=== PATIENT | female | born 1980 | race Caucasian/White ===

== ENCOUNTER 2017-10-05 12:36 | Emergency (ER) | payer SELFPAY ==
[2017-10-05 12:45] VITALS: BP 105/73; PULSE 102; RESP 16; TEMP 98.4; O2SAT 99
[2017-10-05] MEDS ORDERED: LORA0.5T PO (13:23)
[2017-10-05] MEDS ORDERED: ADDE20 PO (13:23)
--- NOTE | 2017-10-05 13:31 | RADRPT ---
EXAM DATE/TIME: 10/05/2017 13:19 [place] COMPARISON: No previous studies available for comparison. INDICATIONS : Left foot pain; twisted foot couple days ago. MEDICAL HISTORY : None. SURGICAL HISTORY : None. ENCOUNTER: Initial ACUITY: 4 - 6 days PAIN SCORE: 5/10 LOCATION: Left foot. FINDINGS: Three view examination of the left foot demonstrates no soft tissue swelling, dislocation, or fractur e. The tarsal bones appear intact. The interphalangeal and metatarsophalangeal joints are intact. The calcaneus is intact. Bony mineralization is normal. CONCLUSION: Unremarkable examination of the left foot. Herminio Wallace MD on October 05, 2017 at 13:27 Board Certified Radiologist. This report was verified electronically.
--- NOTE | 2017-10-05 14:27 | PD ---
HPI Chief Complaint: Pain: Acute or Chronic Time Seen by Provider: 14:13 Travel History International Travel<30 days: No Contact w/Intl Traveler<30days: No Traveled to known affect area: No History of Present Illness HPI 37-year-old female presents to the emergency room for evaluation of left foot pain for the past day. Patient states she was holding her 6-year-old daughter on her back, walking down the road, when she developed sharp, sudden pain to the left plantar foot in the arch. Pain radiates up her ankle. Since then she has had persistent pain, worse with range of motion or when she pushes on it. She has been taking 800 mg ibuprofen without significant relief. She denies history of the same. No chronic medical conditions or daily medications. PFSH Past Medical History ADHD: Yes Anxiety: Yes Depression: Yes Tetanus Vaccination: < 5 Years ?: Not Past Surgical History Surgical History: No Previous Surgery Social History Alcohol Use: No Tobacco Use: No Substance Use: No Allergies-Medications (Allergen,Severity, Reaction): Coded Allergies: No Known Allergies (Unverified , 10/05/17) Reported Meds & Prescriptions Reported Meds & Active Scripts Active Reported Adderall (Amphetamine-Dextroamphetamine) 20 Mg Tab 20 Mg PO DAILY Avoid late evening doses. Space doses at least 4 to 6 hours if more than once/day dosing. Lorazepam 0.5 Mg Tab 0.5 Mg PO Q4H PRN Review of Systems Except as stated in HPI: all other systems reviewed are Neg Physical Exam Narrative GENERAL: Well-nourished, well-developed female no acute distress. Afebrile. Ambulatory. SKIN: Focused skin assessment warm/dry. No erythema or ecchymosis. HEAD: Normocephalic. EYES: No scleral icterus. No injection or drainage. NECK: Supple, trachea midline. No JVD or lymphadenopathy. CARDIOVASCULAR: Regular rate and rhythm without murmurs, gallops, or rubs. RESPIRATORY: Breath sounds equal bilaterally. No accessory muscle use. MUSCULOSKELETAL: No cyanosis, or edema. Full range of motion of the foot. 2+ dorsalis pedis pulse. No tenderness to palpation of the foot. Data Data Last Documented VS Vital Signs Date Time Temp Pulse Resp B/P (MAP) Pulse Ox O2 Delivery O2 Flow Rate FiO2 10/05/17 12:45 98.4 102 16 105/73 (84) 99 Orders Orders Foot, Complete ([id number]) (10/05/17 ) Crutches (10/05/17 14:21) MDM Medical Decision Making Medical Screen Exam Complete: Yes Emergency Medical Condition: Yes Medical Record Reviewed: Yes Differential Diagnosis Plantar fasciitis, muscle strain, muscle spasm, fracture Narrative Course 37-year-old female presents to the emergency room for evaluation of left plantar foot pain for the past day. Patient denies trauma or injury. States pain came on suddenly and is sharp. Localized to the plantar foot with radiation of the ankle. Physical exam is unremarkable. Left lower extremity is neurovascularly intact with 2+ dorsalis pedis pulse. Patient has full range of motion. No significant tenderness to palpation. No erythema or ecchymosis. X-rays negative. Likely plantar fascia strain or muscle strain. Patient was reassured. Told to continue taking Tylenol or Motrin for pain. Follow-up with a primary care physician or return for worsening symptoms Diagnosis Primary Impression: Strain of left foot Qualified Codes: S96.912A - Strain of unspecified muscle and tendon at ankle and foot level, left foot, initial encounter Referrals: Primary Care Physician Additional Instructions: Rest and drink plenty of fluids. Purchase orthotics for your shoes. Take ibuprofen with food as directed, as needed for pain. Apply ice to the affected area for 20 minutes at a time, as needed for pain and swelling. Follow-up with a primary care physician. Return to the emergency room for worsening symptoms. Disposition: 01 DISCHARGE HOME Condition: Stable Wendy Rubio Oct 05, 2017 14:27
== END 2017-10-05 14:36 | disposition home or self-care (01) ==
LOC: NEPK 12:36
DX: S96.912A Strain of unspecified muscle and tendon at ankle and foot level, left foot, initial encounter (principal); F90.9 Attention-deficit hyperactivity disorder, unspecified type; F41.8 Other specified anxiety disorders; X58.XXXA Exposure to other specified factors, initial encounter
CPT/HCPCS: 73630; 99283; E0113